=== PATIENT | female | born 1990 | race African-American/Black ===

== ENCOUNTER 2016-09-29 11:50 | Emergency (ER) | payer OTHER ==
[~2016-09-29 11:50] MED LIST: CIPR0.3S RIGHT EAR; PENI500T PO; PREN0.01 PO
[2016-09-29] MEDS ORDERED: LACTATED RINGER'S 1000 ML INJ 1,000 ML IV SCH (13:00)
[2016-09-29] MEDS ORDERED: METOCLOPRAMIDE HCL 10 MG/2 ML VIAL IV PUSH ONE (13:00)
[2016-09-29] MEDS ORDERED: ONDANSETRON HCL 4 MG/2 ML VIAL IV ONE (13:00)
[2016-09-29 13:28] LABS: BLOOD, URINE NEG (NEG); COMMENT (UR) CULTURE INDICATED; CULTURE IF INDICATED CULTURE INDICATED; GLUCOSE,URINE NEG (NEG); KETONE, URINE 40 mg/dL (NEG); MUCUS URINE MANY /lpf (OCC); NITRITE,URINE NEG (NEG); SQUAMOUS EPITHELIAL CELL URINE 50 /hpf (0-5); URINE COLOR YELLOW (YELLW/STRAW)
[2016-09-29] MEDS ORDERED: ZOFR4TAB3 SL (13:38)
[2016-09-29] MEDS ORDERED: MACR100C2 PO (13:39)
--- NOTE | 2016-09-29 13:39 | PD ---
HPI Chief Complaint Patient complains of abdominal pain and diarrhea with nausea and vomiting yesterday the inability to keep anything down during that time and she is tolerating liquids now Date Seen: Sep 29, 2016 Travel History International Travel<30 Days: No Contact w/Intl Traveler<30Days: No Known Affected Area: No History of Present Illness HPI This patient is a 26-year-old black female AB 4 at 29 weeks presents planning of abdominal pain and diarrhea. She sees Dr. fernando [facility] , she denies bleeding or rupture the membranes baby is active heart rate tracing is reactive she is not alon Para: 3 : 8 Miscarriage: 4 History Obstetric History Obstetric History 3 deliveries in the past 4 losses Family History Family History: Negative Social History Alcohol Use: No Tobacco Use: No Substance Abuse: No Allergies-Medications (Allergen,Severity, Reaction): Coded Allergies: No Known Allergies (Verified , 09/29/16) Home Meds Active Scripts Ciprofloxacin-Dexamethasone (Ciprodex Otic Susp)7.5 Ml Susp4 Drop RIGHT EAR BID 7 Days Prov:Eliel Underwood MD 01/05/14 Penicillin V Potassium (Pen Vk)500 Mg [id number] Mg PO BID #20 Prov:Declan Mcelroy MD 11/09/13 Reported Medications Multivit/Min/Fol Ac/Iron/Pren ( Vit ( Plus)) Tab1 Tab PO DAILY 11/09/13 Review of Systems General / Constitutional: No: Fever, Weight Gain, Chills, Other Eyes: No: Diploplia, Blurred Vision, Visual changes, Pain, Photophobia HENT: No: Headaches, Vertigo, Lightheadedness Cardiovascular: No: Irregular Rhythm, Chest Pain or Discomfort, Palpitations, Tachycardia, Syncope, Varicosities, Edema, Cyanosis Respiratory: No: Cough, Short of Breath, Other Gastrointestinal: Nausea, Vomiting, Diarrhea, Abdominal Pain Genitourinary: No: Decreased Urinary Output, Oliguria Musculoskeletal: No: Limited ROM, Weakness, Cramping, Edema, Pain Skin: No Rash, No Itching, No Dryness, No Lumps, No Change in Pigmentation, No Change in Nails, No Alopecia, No Lesions Neurologic: No: Weakness, Dizziness, Syncope, Focal Abnormalities, Coordination Problem, Headache, Slurred Speech, Seizures Psychiatric: No: Depression, Suicidal Ideations, Homicidal Ideation Endocrine: No: Heat Intolerance, Cold Intolerance, Polydipsia, Polyuria, Other Physical Exam Narrative GENERAL: Well-nourished, well-developed patient. SKIN: Warm and dry. HEAD: Normocephalic and atraumatic. EYES: No scleral icterus. No injection or drainage. ENT: No nasal drainage noted. Mucous membranes pink. Airway patent. NECK: Supple, trachea midline. No JVD. CARDIOVASCULAR: Regular rate and rhythm without murmurs, gallops, or rubs. RESPIRATORY: Breath sounds equal bilaterally. No accessory muscle use. BREASTS: Bilateral exam showed no masses , no retractions, no nipple discharge. ABDOMEN/GI: Abdomen soft, non-tender, bowel sounds present, no rebound, no guarding Gravid to [29-] weeks size Fundal Height: [28-] GENITOURINARY: External Genitalia: intact and normal in appearance BUS glands: [-] Cervix: [-] Closed Dilatation: [-] Closed Effacement: [-] thick Station: [-3] P r Membranes: [intact Uterine Contractions: [-none] FHT's: Category: [1-] Baseline: 144[-] Reactive: [yes-] Variability: [mod-] Decels: [-none] EXTREMITIES: No cyanosis or edema. BACK: Nontender without obvious deformity. No CVA tenderness. NEUROLOGICAL: Awake and alert. Motor and sensory grossly within normal limits. Five out of 5 muscle strength in all muscle groups. Normal speech. Data Data Orders Vital Signs (Adult) .ON ADMISSION (09/29/16 12:52) ^ Labor Status (09/29/16 12:52) Urinalysis - C+S If Indicated (09/29/16 12:52) Lactated Ringer's 1000 Ml Inj (Lr 1000 M (09/29/16 13:00) Ondansetron Inj (Zofran Inj) (09/29/16 13:00) Metoclopramide Inj (Reglan Inj) (09/29/16 13:00) Pantoprazole Inj (Protonix Inj) (09/29/16 14:00) Diphenoxylate/Atropine Tab (Lomotil Tab) (09/29/16 14:00) Urine Culture (09/29/16 12:10) Labs Laboratory Tests Test 2/18/17 12:10 Urine Color YELLOW Urine Turbidity CLOUDY Urine pH 6.0 Urine Specific [place] 1.032 Urine Protein 30 Urine Glucose (UA) NEG Urine Ketones 40 Urine Occult Blood NEG Urine Nitrite NEG Urine Bilirubin NEG Urine Urobilinogen 4.0 Urine Leukocyte Esterase LARGE Urine RBC 15 Urine WBC 63 Urine Squamous Epithelial 50 Cells Urine Mucus MANY Microscopic Urinalysis Comment CULTURE INDICATED Date/Time Procedure Status Source Growth 09/29/16 12:10 Urine Culture Received Urine Clean Catch Pending [facility] Interpretation(s) This patient is a 26-year-old black female a for 29 weeks followed by an outside physician for OB care and is planning of [facility]. She presents here with abdominal pain and diarrhea over the last couple of days and yesterday had nausea and vomiting not much today baby is active she did has no bleeding leakage of fluid or discharge heart rate tracing is reactive and no contractions her cervix is closed thick and high no nausea vomiting or diarrhea noted she was here. She received IV fluid refused medications IV. She requested Zofran and ODT and will prescribe this. Urinalysis showed large leukocyte esterase WBCs RBCs and cultures indicated. We'll go ahead and prescribe Macrobid 100 twice a day for 7 days along with Zofran and previously mentioned Plan Plan the patient take oral medications as prescribed use Imodium AD over-the- counter for diarrhea she was given 1 Lomotil here today. She will have a prescription for Macrobid and Zofran she will follow-up with her OB provider, she will increase her fluid intake to stay hydrated. Diagnosis Diagnosis: Primary Impression: Abdominal pain during in third trimester Additional Impressions: Diarrhea UTI (urinary tract infection) during Disposition: 01 DISCHARGE HOME Condition: Stable Scripts Nitrofurantoin Monohydrate Macrocrystals (Macrobid)100 Mg [id number] Mg PO BID #14 CAP Ref 0 Prov:Jeronimo Black II, MD 09/29/16 Ondansetron Odt (Zofran Odt)4 Mg Tab4 Mg SL Q8HR PRN (Nausea/Vomiting) #30 TAB Ref 0 Prov:Jeronimo Black II, MD 09/29/16 Patient Instructions: General Instructions Departure Forms: Tests/Procedures Jeronimo Black II, MD Sep 29, 2016 13:39
[2016-09-29] MEDS ORDERED: PANTOPRAZOLE SODIUM 40 MG VIAL IV PUSH ONE (14:00)
[2016-09-29] MEDS ORDERED: DIPHENOXYLATE/ATROPINE 2.5 MG/0.025 MG TAB PO ONE (14:00)
[2016-10-22] MEDS ORDERED: PREN1CAP7 PO (10:37)
[2016-11-05] MEDS ORDERED: CEPH-460 PO (09:41)
[2016-11-09] MEDS ORDERED: METR-1 PO (09:15)
[2016-11-09] MEDS ORDERED: TERC.4%V VAGINAL (09:15)
[2016-12-11] MEDS ORDERED: HYDR2.5%T RECTAL (10:29)
== END 2016-09-29 13:59 | disposition home or self-care (01) ==
LOC: HOBED 11:50
DX: O26.893 Other specified pregnancy related conditions, third trimester (principal); R10.9 Unspecified abdominal pain; R19.7 Diarrhea, unspecified; O23.43 Unspecified infection of urinary tract in pregnancy, third trimester; Z3A.29 29 weeks gestation of pregnancy
CPT/HCPCS: 81001; 87086; 96360; 99284; J7120

== ENCOUNTER 2016-12-12 08:56 | Emergency (ER) | payer MEDICAID, OTHER ==
[~2016-12-12] VITALS: Ht 157.5 cm; Wt 67.0 kg
[~2016-12-12 08:56] MED LIST changes: -CIPR0.3S RIGHT EAR; +HYDR2.5%T RECTAL; -PENI500T PO; -PREN0.01 PO
[2016-12-12 08:59] VITALS: BP 136/88; PULSE 102; RESP 28; TEMP 97.9; O2SAT 98
--- NOTE | 2016-12-12 09:10 | PD ---
HPI Chief Complaint: GI Complaint Time Seen by Provider: 09:09 Travel History International Travel<30 days: No Contact w/Intl Traveler<30days: No Traveled to known affect area: No History of Present Illness HPI 26-year-old female came to the emergency room with history of rectal pain. She says she has external hemorrhoids since she gave to her baby one week ago. It has been hurting for past 2 days but this morning after she had a bowel movement the pain was excruciating. He has been using laxatives suppositories. Because of which she did not strain too much during the bowel movement. She pushed one of the larger hemorrhoids back inside. She came in with severe distress and screaming in pain. She still bleeding vaginally because of the postpartal status. Patient was slightly tachycardic and tachypneic. [facility] Past Medical History Narrative Medical List of her past medical, surgical, social and family history is reviewed from the nursing note. Autoimmune Disease: No Blood Disorders: No Anxiety: No Depression: No Cardiovascular Problems: No Diminished Hearing: No Gastrointestinal Disorders: No Genitourinary: No Musculoskeletal: No Neurologic: No Psychiatric: No Respiratory: No Immunizations Current: No Sickle Cell Disease: No ?: Not LMP: 1 WEEK PP Menopausal: No : 5 Para: 2 Miscarriage: 2 : 0 Past Surgical History Other Surgery: No Social History Alcohol Use: No Tobacco Use: No Substance Use: No Allergies-Medications (Allergen,Severity, Reaction): Coded Allergies: No Known Allergies (Verified , 12/12/16) Comments No known drug allergies. Reported Meds & Prescriptions Reported Meds & Active Scripts Active Miralax Powder (Polyethylene Glycol 3350 Powder) 17 Gm Powd 17 Gm PO DAILY Mix and dissolve one measuring cap-ful (17 grams) in water or juice. Anusol-Hc Supp (Hydrocortisone Supp) 25 Mg Supp 25 Mg RECTAL BID Anusol-Hc Rectal (Hydrocortisone Rectal) 2.5% Cream 1 Applic RECTAL TID Narrative Medication List of her home medications reviewed from the nursing note. Review of Systems Except as stated in HPI: all other systems reviewed are Neg Physical Exam Narrative GENERAL: Awake, alert, anxious, severe distress SKIN: Focused skin assessment warm/dry. HEAD: Atraumatic. Normocephalic. EYES: Pupils equal and round. No scleral icterus. No injection or drainage. ENT: No nasal bleeding or discharge. Mucous membranes pink and moist. NECK: Trachea midline. No JVD. CARDIOVASCULAR: Regular rate and rhythm. No murmur appreciated. RESPIRATORY: No accessory muscle use. Clear to auscultation. Breath sounds equal bilaterally. GASTROINTESTINAL: Abdomen soft, non-tender, nondistended. Hepatic and splenic margins not palpable. : Vaginal bleeding from status. 2 large external thrombosed hemorrhoids MUSCULOSKELETAL: No obvious deformities. No clubbing. No cyanosis. No edema. NEUROLOGICAL: Awake and alert. No obvious cranial nerve deficits. Motor grossly within normal limits. Normal speech. PSYCHIATRIC: Appropriate mood and affect; insight and judgment normal. Data Data Last Documented VS Vital Signs Date Time Temp Pulse Resp B/P Pulse Ox O2 Delivery O2 Flow Rate FiO2 12/12/16 10:41 84 20 120/80 100 12/12/16 08:59 97.9 Orders Bupivacaine Liposo Pf 1.3% Inj (Exparel (12/12/16 09:15) Lidocaine 1% Inj (Xylocaine 1% Inj) (12/12/16 09:15) Bupivacaine Pf 0.5% Inj (Marcaine Pf 0.5 (12/12/16 09:23) MDM Medical Decision Making Medical Screen Exam Complete: Yes Emergency Medical Condition: Yes Medical Record Reviewed: Yes Differential Diagnosis Thrombosed hemorrhoid Narrative Course 10:17 AM patient had the thrombectomy done from the thrombosed hemorrhoid. Please refer to my procedure note. She is comfortable right now. Minimal bleeding. She will be discharged home with instructions. Procedures Procedure Narrative Thrombosed hemorrhoidectomy: Patient had 2 large external hemorrhoids. #1 is that 12 o'clock position and #2 at 2 o'clock position. Both had multiple thrombosed veins in them. The area was numbed with 3% bupivacaine and 1% lidocaine mix. Total of 10 mL of the anesthetic was infiltrated. As soon as anesthesia was achieved incision was made over the hemorrhoid #1 and multiple large blood clots were expressed from the thrombosed veins. Followed by a second incision on hemorrhoid #2 and once again multiple clots were expressed from the thrombosed veins. Total procedure lasted for 30 minutes from beginning till the end. Patient tolerated the procedure well. The nurse will give her depends to wear which should take care of the bleeding rectally as well as vaginally. EKG Prior to Arrival: No Diagnosis Primary Impression: Thrombosed external hemorrhoids Referrals: Primary Care Physician 2 days Additional Instructions: Please return to the ER if the condition worsens or any other new concerns. Otherwise follow-up with your primary care. Use sitz bath 4-5 times a day at least. Fill the bathtub about one to 2 foot with warm water. Add Epsom salt 4- 5 tablespoons and sit down with her bottom inserted below the water level. Sit for 20 minutes each time. Do this as frequently as possible until the wounds heal. Use witch rufus pads/Chux that you can buy from any pharmacy. Med/Other Pt SpecificInfo: Prescription(s) given Scripts Polyethylene Glycol 3350 Powder (Miralax Powder)17 Gm Powd17 Gm PO DAILY #1 BOTTLE Ref 0 Mix and dissolve one measuring cap-ful (17 grams) in water or juice. Prov:Wil Sharma MD 12/12/16 Hydrocortisone Supp (Anusol-Hc Supp)25 Mg Supp25 Mg RECTAL BID #24 SUPP Prov:Wil Sharma MD 12/12/16 Disposition: 01 DISCHARGE HOME Condition: Stable Wil Sharma MD December 12, 2016 09:10
[2016-12-12] MEDS ORDERED: LIDOCAINE HCL 1% 30 ML VIAL INFIL ONE (09:15)
[2016-12-12] MEDS ORDERED: BUPIVACAINE LIPOSOME PF 1.3% 20 ML VIAL INFIL ONE (09:15)
[2016-12-12] MEDS ORDERED: BUPIVACAINE HCL PF 0.5% 10 ML VIAL ONE (09:23)
[2016-12-12] MEDS ORDERED: MIRA33504 PO (10:23)
[2016-12-12] MEDS ORDERED: ANUS25SU RECTAL (10:23)
[2016-12-12 10:41] VITALS: BP 120/80; PULSE 84; RESP 20; O2SAT 100
== END 2016-12-12 11:17 | disposition home or self-care (01) ==
LOC: NEPD 08:56
DX: K64.5 Perianal venous thrombosis (principal)
CPT/HCPCS: 46083; 99283; C9290